=== PATIENT | male | born 1995 | race Caucasian/White ===

== ENCOUNTER → 2017-03-15 19:19 | Emergency (ER) | payer MEDICAID ==
--- NOTE | 2017-03-15 19:58 | RAD ---
HISTORY: Right hand trauma COMPARISONS: March 26, 2015 VIEWS: 4, Frontal, lateral, and oblique views of the right hand FINDINGS: BONE DENSITY: Normal. BONES: There is no displaced fracture. JOINTS: There is no arthropathy. ALIGNMENT: There is no dislocation. SOFT TISSUES: Unremarkable. OTHER FINDINGS: None. IMPRESSION: NO ACUTE OSSEOUS INJURY. IF SYMPTOMS PERSIST, RECOMMEND REPEAT IMAGING.
[2017-03-15 20:44] VITALS: BP 109/60
--- NOTE | 2017-03-15 21:09 | ED ---
Upper Extremity Pain - HPI Summary HPI Summary: Patient presents to the ED after punching a door frame and c/o right 5th metacarpal pain with redness and bruising to the area, but no deformity noted. He denies any other pain or symptoms. Pain is 8/10, worse with movement and better with rest. He has not tried medications for relief. Injury occurred a few hours prior to arrival. He has never injured the hand before. Pain radiates to the wrist and forearm, however on palpation, he has not pain in the arm. Denies numbness, tingling, temperature to the area. Pulses +2 bilaterally and cap refill < 2 sec. - History of Current Complaint Chief Complaint: EDExtremityUpper Stated Complaint: RT HAND INJURY Time Seen by Provider: 03/15/17 19:28 Hx Obtained From: Patient Mechanism Of Injury: Direct Blow Onset/Duration: Started Hours Ago Timing: Constant Severity Initially: Moderate Severity Currently: Moderate Pain Location: Hand Character: Aching, Throbbing Aggravating Factor(s): Movement, Lifting, Flexion, Extension Alleviating Factor(s): Rest, Ice Associated Signs & Symptoms: Positive: Redness, Bruising Related History: Dominant Hand Right - Risk Factors Non-Orthopedic Risk Factor: Negative DVT Risk Factors: Negative Septic Arthritis Risk Factor: Negative Compartment Syndrome Risk Factors: Pain - Allergies/Home Medications Allergies/Adverse Reactions: Allergies Allergy/AdvReac Type Severity Reaction Status Date / Time Amoxicillin Allergy Hives Verified 03/15/17 19:22 PMH/Surg Hx/FS Hx/Imm Hx Previously Healthy: Yes Cardiovascular History: Reports: Other Cardiovascular Problems/Disorders - PT.STATES LOW BP - Immunization History Hx Pertussis Vaccination: No Immunizations Up to Date: Unable to Obtain/Confirm Infectious Disease History: No Infectious Disease History: Denies: Traveled Outside the [place] in Last 30 Days - Family History Known Family History: Positive: Other - Migraines - Social History Occupation: Employed Full-time Lives: With Family Alcohol Use: Rare Hx Substance Use: Yes Substance Use Type: Reports: Marijuana Hx Tobacco Use: Yes Smoking Status (MU): Light Every Day Tobacco Smoker Review of Systems Constitutional: Negative Eyes: Negative Cardiovascular: Negative Respiratory: Negative Positive: no symptoms reported, see HPI Positive: Arthralgia - right hand pain Positive: Bruising - right hand without swelling Neurological: Negative All Other Systems Reviewed And Are Negative: Yes Physical Exam Triage Information Reviewed: Yes Vital Signs On Initial Exam: Initial Vitals Temp Pulse Resp BP Pulse Ox 98.7 F 87 16 124/67 99 03/15/17 19:23 03/15/17 19:23 03/15/17 19:23 03/15/17 19:23 03/15/17 19:23 Vital Signs Reviewed: Yes Appearance: Positive: Well-Appearing, Well-Nourished Skin: Positive: Warm, Skin Color Reflects Adequate Perfusion, Other - ecchymosis and erythema over 5th metacarpal joint of the right hand Eyes: Positive: Normal, NARGIS Neck: Positive: Supple, No Lymphadenopathy Respiratory/Lung Sounds: Positive: Clear to Auscultation, Breath Sounds Present Cardiovascular: Positive: Normal, RRR, Pulses are Symmetrical in both Upper and Lower Extremities Musculoskeletal: Positive: Pain @ - right 5th metacarpal Neurological: Positive: Sensory/Motor Intact, Alert, Oriented to Person Place, Time, Speech Normal Psychiatric: Positive: Normal Diagnostics - Vital Signs Vital Signs Temp Pulse Resp BP Pulse Ox 03/15/17 20:41 99.2 F 75 16 109/60 03/15/17 19:35 98.7 F 87 16 124/67 99 03/15/17 19:23 98.7 F 87 16 124/67 99 - Laboratory Lab Statement: Any lab studies that have been ordered have been reviewed, and results considered in the medical decision making process. Course/Dx - Course Course Of Treatment: ecchymosis and erythema over 5th metacarpal joint of the right hand. patient sent to xray with findings of no acute osseous injury. He is given a splint and encouraged ibuprofen 600mg three times daily and ice. He is to return to the ED or follow up with PCP if symptoms worsen or persist. - Diagnoses Differential Diagnosis/HQI/PQRI: Positive: Contusion, Fracture (Open), Fracture (Closed) Provider Diagnoses: Hand contusion Discharge - Discharge Plan Condition: Stable Disposition: HOME Patient Education Materials: Contusion in Adults (ED) Referrals: Willie Gaytan MD [Primary Care Provider] - Additional Instructions: Ibuprofen 600mg three times daily ice to the area 3 times per day x 2 days or until swelling reduces Images - Images Hands: 1 - pain and swelling
== END | disposition home or self-care (01) ==
LOC: ED 19:19
DX: S60.221A Contusion of right hand, initial encounter (principal); W22.01XA Walked into wall, initial encounter; Y93.9 Activity, unspecified; Y92.89 Other specified places as the place of occurrence of the external cause
CPT/HCPCS: 99282

== ENCOUNTER 2019-07-14 02:10 | Emergency (ER) | payer OTHER ==
--- NOTE | 2019-07-14 02:51 | ED ---
HPI Cardiac - HPI Summary HPI Summary: Patient is a 23 y/o M presenting to [facility] with complaints of chest pain and palpitations. Sx have been present for the past few days. Palpitations are characterized as "harsh". Chest pain is described as a tightness and has been intermittent. Episodes of chest pain vary in duration, with the patient stating that they last from either a few minutes to a couple of hours. On triage, pain is rated 4/10. He states that exertion and stress aggravate Sx. Nausea, intermittent SOB is endorsed as well. He notes presence of a cough but attributes this to his smoking habit. Patient also states that he has been experiencing increased sleep disturbance, stating that he has been diaphoretic at night and restless. Patient takes Xanax for anxiety. He claims Hx of GI issues. He works at [employer]. Home medications and allergies are reviewed. - History of Current Complaint Chief Complaint: EDChestPainROMI Stated Complaint: CHEST PAIN PER PT Hx Obtained From: Patient Onset/Duration: Started Days Ago Timing: Intermittent, Lasting Days Current Severity: Moderate Pain Intensity: 4 Pain Scale Used: 0-10 Numeric Character: Tightness, Other: - "harsh" palpitations Aggravating Factor(s): Exertion, Other: - stress Alleviating Factor(s): Nothing Associated Signs and Symptoms: Positive: Chest Pain, Shortness of Breath, Nausea , Palpitations, Cough, Other: - positive - increased sleep disturbance, night sweats - Allergy/Home Medications Allergies/Adverse Reactions: Allergies Allergy/AdvReac Type Severity Reaction Status Date / Time amoxicillin Allergy Hives Verified 07/14/19 04:22 PMH/Surg Hx/FS Hx/Imm Hx Cardiovascular History: Reports: Other Cardiovascular Problems/Disorders - PT.STATES LOW BP Sensory History: Denies: Hx Legally Blind, Hx Deafness Opthamlomology History: Denies: Hx Legally Blind EENT History: Denies: Hx Deafness Psychiatric History: Reports: Hx Anxiety Infectious Disease History: No Infectious Disease History: Denies: Traveled Outside the [place] in Last 30 Days - Family History Known Family History: Positive: Other - Migraines - Social History Alcohol Use: Rare Hx Substance Use: Yes Substance Use Type: Reports: Marijuana Hx Tobacco Use: Yes Smoking Status (MU): Light Every Day Tobacco Smoker Review of Systems Constitutional: Other - positive - increased sleep disturbance Positive: Skin Diaphoresis - night sweats Positive: Palpitations, Chest Pain Positive: Shortness Of Breath, Cough Positive: Nausea All Other Systems Reviewed And Are Negative: Yes Physical Exam - Summary Physical Exam Summary: Appearance: Well-appearing, Well-nourished, lying in bed comfortably Skin: Warm, dry, no obvious rash Eyes: sclera anicteric, no conjunctival pallor ENT: mucous membranes moist, pharynx appears normal Neck: Supple, nontender Respiratory: Clear to auscultation, no signs of respiratory distress Cardiovascular: Normal S1, S2. No murmurs. Normal distal pulses in tibial and radial bilaterally. Abdomen: Soft, nontender, normal active bowel sounds present Musculoskeletal: Normal, Strength/ROM Intact Neurological: A&Ox3, awake and alert, mentation is normal, speech is fluent and appropriate Psychiatric: affect is normal, does not appear anxious or depressed Triage Information Reviewed: Yes Vital Signs On Initial Exam: Initial Vitals Temp Pulse Resp BP Pulse Ox 99.3 F 74 15 148/75 100 07/14/19 02:22 07/14/19 02:22 07/14/19 02:22 07/14/19 02:22 07/14/19 02:22 Vital Signs Reviewed: Yes Procedures - Sedation Patient Received Moderate/Deep Sedation with Procedure: No Diagnostics - Vital Signs Vital Signs Temp Pulse Resp BP Pulse Ox 07/14/19 02:22 99.3 F 74 15 148/75 100 - Laboratory Result Diagrams: 07/14/19 02:55 07/14/19 02:55 Lab Statement: Any lab studies that have been ordered have been reviewed, and results considered in the medical decision making process. - Radiology CXR Radiology Interpretation Completed By: ED Physician Summary of Radiographic Findings: No acute process, pending official report. - EKG 0220 Cardiac Rate: Bradycardia - rate of 59 BPM EKG Rhythm: Sinus Bradycardia Summary of EKG Findings: EKG shows NSR at 59 BPM, P waves, QRS complex, and T waves are within normal limits, T waves and intervals are normal, no ischemic changes, no STEMI. ED physician has reviewed and interpreted this EKG. Disposition - Course Course Of Treatment: Patient is a 23 y/o M presenting to [facility] with complaints of chest pain and palpitations. Sx have been present for the past few days. Palpitations are characterized as "harsh". Chest pain is described as a tightness and has been intermittent. Episodes of chest pain vary in duration, with the patient stating that they last from either a few minutes to a couple of hours. On triage, pain is rated 4/10. He states that exertion and stress aggravate Sx. Nausea, intermittent SOB is endorsed as well. He notes presence of a cough but attributes this to his smoking habit. Patient also states that he has been experiencing increased sleep disturbance, stating that he has been diaphoretic at night and restless. Physical exam is unremarkable. EKG shows NSR at 59 BPM, P waves, QRS complex, and T waves are within normal limits, T waves and intervals are normal, no ischemic changes, no STEMI. CXR showed no acute process. Bloodwork was obtained. Abnormal values include WBC 12.5, RBC 4.14, Hgb 13.4, MCH 32, absolute neuts 9.3, absolute monos 0.9, potassium 3.3, glucose 110, AST 12. Patient was discharged to home. He was prescribed Zofran and will follow up with PCP if needed. - Diagnoses Provider Diagnoses: Palpitations Discharge ED - Sign-Out/Discharge Documenting (check all that apply): Patient Departure - DISCHARGE - Discharge Plan Condition: Stable Disposition: HOME Prescriptions: Ondansetron ODT TAB* [Zofran 4 MG Odt TAB*] 8 mg PO Q6H PRN #14 tab.odt PRN Reason: Nausea Patient Education Materials: Heart Palpitations (ED), Acute Nausea and Vomiting (ED), Noncardiac Chest Pain (ED) Referrals: Willie Gaytan MD [Medical Doctor] - 3 Days (if not better) Additional Instructions: Your blood work was normal except for a slight elevation of your white blood cell count, which is consistent with some type of infection. You likely are battling some type of virus that is causing your symptoms, but no specific treatment is needed at present, your body should clear out the infection in a short time, likely a few days. As long as you start feeling better, no specific followup is needed. - Billing Disposition and Condition Condition: STABLE Disposition: Home - Attestation Statements Document Initiated by Scribe: Yes Documenting Scribe: FLORIDALMA SOTOMAYOR Provider For Whom Scribe is Documenting (Include Credential): MANUELA CESAR MD Scribe Attestation: IFLORIDALMA, scribed for MANUELA CESAR MD on 07/15/19 at 0358. Scribe Documentation Reviewed: Yes Provider Attestation: The documentation as recorded by the miibeFLORIDALMA accurately reflects the service I personally performed and the decisions made by me, MANUELA CESAR MD Status of Scribe Document: Viewed
[2019-07-14 03:00] LABS: ABS Basophils 0.1 10^3/ul (0-0.2); ABS Eosinophils 0.1 10^3/ul (0-0.6); ABS Lymphocytes 2.1 10^3/ul (1.0-4.8); ABS Monocytes 0.9 10^3/ul (0-0.8); ABS Neutrophils 9.3 10^3/ul (1.5-7.7); Hematocrit 38 % (42-52); Hemoglobin 13.4 g/dL (14.0-18.0); Lymphocyte % 17.1 %; Mean Corpuscular HGB Conc 35 g/dL (31-36); Mean Corpuscular Hemoglobin 32 pg (27-31); Mean Corpuscular Volume 92 fL (80-94); Mean Platelet Volume 8.4 fL (7.4-10.4); Platelet Count 198 10^3/uL (150-450); Red Blood Count 4.14 10^6 /uL (4.18-5.48); Red Cell Distribution Width 15 % (10-15); White Blood Count 12.5 10^3/uL (3.5-10.8)
[2019-07-14 03:19] LABS: Albumin 4.5 g/dL (3.2-5.2); BUN/Creatinine Ratio 11.5 (8-20); EGFR African American 107.1 (>60); EGFR Non-African American 88.5 (>60); Globulin 2.2 g/dL (2-4); Potassium 3.3 mmol/L (3.5-5.0); Total Bilirubin 0.5 mg/dL (0.2-1.0); Total Protein 6.7 g/dL (6.4-8.9)
--- OUTSIDE RECORDS SUMMARY | 2019-07-14 03:22 | XMS REPORT ---
:1995 Author Organization [facility] Address [address] [place] [address] Care Team Providers Name Role Phone Dc Nance Unavailable Unavailable PROBLEMS Type Condition ICD9-CM [id number] Onset Condition SNOMED Code Code Code Dates Status Problem History of Z86.19 Active [id number] syphilis Problem Lymph node R59.9 Active 64260467 enlargement Problem Cigarette F17.210 Active 09999506 nicotine dependence without complication Problem Erectile N52.9 Active 174248331 dysfunction, unspecified erectile dysfunction type Problem Depression, F33.1 Active 601531654 major, recurrent, moderate Problem High risk Z72.52 Active 274194668 homosexual behavior Problem Underweight R63.6 Active 188957173 Problem Depression, F32.9 Active 58759882 unspecified depression type Problem Anxiety F41.9 Active 42498645 ALLERGIES No Information ENCOUNTERS Encounter Location Date Diagnosis [facility] [address] [place] [address] May, [place] [address] [facility] [address] [facility], Feb, [place]xiety F41.9 [place] [address] [facility] [address] [facility], Feb, [place] F41.9 [place] [address] [facility] [address] [place] [address] Jan, [place] [address] [facility] [address] [facility] Jan, [place] [address] [facility] [address] [facility] Jan, [place], [place] [address] [facility] [address] [place] [address] Jan, [place] [address] [facility] [address] [place], [place] [address] [place] [facility] [address] [place], [place] [address] [place] [facility] [address] [place], [place] [address] [place] [facility] [address] [place], Dec, [place], [place] [address] depression type F32.9 ; Anxiety F41.9 ; High risk heterosexual behavior Z72.51 ; Lymph node enlargement R59.9 ; Erectile dysfunction, unspecified erectile dysfunction type N52.9 ; Emesis, persistent R11.10 and Body mass index (BMI) less than 19 Z68.1 [place] [facility] [address] [place], [place] [address] [facility] [address] [place], [place] [address] [facility] [address] [place], Oct, Anxiety F41.9 ; [place] [address] Depression, unspecified depression type F32.9 and Lymph node enlargement R59.[address] Oct, [place] [address] Oct, [place], [place] [address] depression type F32.9 [facility] [address] [place] [address] [place], Oct, Depression, [place] [address] depression type F32.9 and Lymph node enlargement R59.[address] Oct, [place] [address] Oct, Tinea versicolor B36.0 [place] [address] Oct, [place] [address] [facility] [address] [place], [place] [address] [facility] [address] [place], [place] [address] [facility] [address] [place], Sep, Rash R21 [place] [address] unspecified depression type F32.9 [facility] [address] [place], Sep, [place] [address] R59.[address] [place] [facility] [address] Sep, [place] [address] Sep, [place] [address] [facility] [address] [place] [address] [place], [place] [address] [facility] [address] [place] [address] [place], Aug, Depression, [place] [address] depression type F32.[address] [place], Aug, Rash R21 ; [place] [address] R22.0 and High risk homosexual behavior Z72.52 [place] [facility] [address] [place] [address] [place], [place] [address] Jul, [place] [address] [place], [place] [address] [place], [place] [address] [place], [place], [place] [address] behavior Z72.[address] [place], [place] [address] [place], May, Rash R21 ; [place] [address] homosexual behavior Z72.52 and Blood in sputum R04.[address] [place] [address] [place], May, [place]quired [place] A53.9 [place] [address] Apr, [place] [address] Feb, [facility] [place] [address] Dec, [facility] [place] [address] [facility] [address] [place] [address] [place], [place] [address] [place], [place] [address] [place], Jul, Syphilis A53.9 ; [place] [address] node enlargement R59.9 and Night sweats R[address] [place] [address] [place], [place] [address] [place], [place] [address] [facility] [address] [place], [place] [address] [facility] [address] [facility] Jun, [place] [address] [facility] [address] [place], [place] [address] [facility] [address] [facility] Jun, 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 [place] [address] [facility] [address] [place], Jun, [place] [address] male A51.49 and High risk sexual behavior Z72.51 [place] [facility] [address] [place], [place] [address] [facility] [address] [place], [place] [address] [facility] [address] [facility] [place], [place] [address] [facility] [address] [facility] [place], Jun, [place] [address] R59.9 ; Left groin pain R10.32 ; Acute bronchitis, unspecified organism J20.9 ; Right hand pain M79.641 ; Cigarette nicotine dependence without complication F17.210 ; Encounter for screening for HIV Z11.4 ; Screening for STD (sexually transmitted disease) Z11.3 ; Underweight R63.6 and Body mass index (BMI) of 19 or less in adult Z68.[address] Jun, [place] [address] [facility] [address] [facility] [place], May, [place] [address] R59.9 ; Underweight R63.6 and Body mass index (BMI) less than 16.[address] May, [place] [address] [facility] [address] [place], [place] [address] [place] [facility] [address] [place] [address] [facility] [address] [place], [place] [address] [facility] [address] [place], [place] [address] [place] [facility] [address] [place] [address] [facility] [address] [place], [place] [address] [place] [facility] [address] [place], [place] [address] [facility] [address] [place], Jan, [place] [address] M25.561 and Concussion, without LOC, subsequent encounter S06.0X0D [place] [facility] [address] [place], [place] [address] [facility] [address] [facility] Jan, [place] [address] [place] [facility] [address] [place], Jan, [place] [address] M25.561 [facility] [address] [place], [place] [address] [facility] [address] [place], [place] [address] [facility] [address] [place] [address] [place], [place] [address] [facility] [address] [facility] Dec, [place] [address] [facility] [address] [place], [place] [address] [facility] [address] [facility] [place], [place] [address] [facility] [address] [place], [place] [address] IMMUNIZATIONS No Known Immunizations SOCIAL HISTORY Never Assessed REASON FOR REFERRAL FUNCTIONAL STATUS PLAN OF CARE VITAL SIGNS MEDICATIONS Unknown Medications PROCEDURES No Known procedures RESULTS No Results REASON FOR VISIT NS to psych 06/09 Insurance Providers [facility] Member Patient Patient Patient Patient Patient Subscriber Subscriber Subscriber Group Insurance Plan Plan Plan Plan ID Relationship Address Phone Name Date of ID Name Date of No Type Insurance Insurance Insurance Coverage to Subscriber Address Phone Name Dates Case [phone] Case Cipriano [id number] Management [place] 02 Management [facility] [address] [facility] Reeves [phone] Frandy self Cipriano [id number] Medicaid [id number] Medicaid [place] [address] [employer] Blue [phone] Blue self Cipriano [id number] Choice Opt [address] Choice Opt [place] [address] [place] Claims [id number] [place] [facility] [place] [facility] [place] [place] [facility] [address] Medicaid [phone] Medicaid self [place]ri[place] [id number] [facility] [address] [place] [address] Frandy [phone] Frandy self Cipriano [id number] Medicaid [place] 47 [place] [address] Medical Medicaid [id number] [phone] Medicaid self C[place]ri[place] [id number] Wrap [facility] 56 Wrap [place] [address] Medicaid [phone] Medicaid self Cipriano [id number] Wrap [facility] [address] [place] [address] Frandy [phone] Reeves self Cipriano [id number] Medicaid [id number] 08 Medicaid [facility] [place] [address] [employer] Reeves [phone] Reeves self Cipriano [id number] Medicaid [place] 47 [place] [address] Medical Frandy [phone] Reeves self Cipriano [id number] Medicaid [place] 47 [place] [address] Medical Blue [phone] Blue self Cipriano [id number] Choice Opt [id number] Choice Opt [place] 0 Medical [facility] [address] Frandy [phone] Frandy self Cipriano [id number] Medicaid [id number] 08 Medicaid [facility] [place] [address] [employer] MEDICAL (GENERAL) HISTORY Type Description Date Medical History Enlarged Lymph Nodes Surgical History groin surgery 01/2016
[2019-07-14 03:54] LABS: TSH (Thyroid Stimulating Horm) 1.3 mcIU/mL (0.34-5.60)
[2019-07-14 04:31] VITALS: BP 113/53
== END 2019-07-14 04:31 | disposition home or self-care (01) ==
LOC: ED 02:10
DX: R00.2 Palpitations (principal); F41.9 Anxiety disorder, unspecified; F17.200 Nicotine dependence, unspecified, uncomplicated; Z88.0 Allergy status to penicillin
CPT/HCPCS: 36415; 71046; 80053; 84443; 84484; 85025; 93005; 99282